=== PATIENT | female | born 1975 | race Caucasian/White ===

== ENCOUNTER → 2023-07-11 | Outpatient (CLI) | payer OTHER ==
[2023-07-13 15:12] LABS: HPV 16 Negative (Negative); HPV 18 Negative (Negative); HPV OTHER HR TYPES Negative (Negative)
== END ==
LOC: LAB SHORT 15:48 → LAB 15:48
PROVIDERS: Family Medicine
DX: Z01.419 Encounter for gynecological examination (general) (routine) without abnormal findings (principal)
CPT/HCPCS: 87624; G0145

== ENCOUNTER 2024-04-01 08:17 | Emergency (ER) | payer OTHER ==
[~2024-04-01] VITALS: Ht 160 cm; Wt 77.1 kg
[2024-04-01 08:20] VITALS: BP 120/88
[2024-04-01] MEDS ORDERED: Ketorolac Tromethamine 30mg Vial IV ONE (10:05)
== END 2024-04-01 10:55 | disposition home or self-care (01) ==
LOC: ER 08:17
DX: G56.21 Lesion of ulnar nerve, right upper limb (principal)
CPT/HCPCS: 73080; 73110; J1885

== ENCOUNTER 2024-10-10 12:03 | Emergency (ER) | payer OTHER, BC ==
[~2024-10-10] VITALS: Ht 160 cm; Wt 74.4 kg
[2024-10-10] MEDS ORDERED: HYDROmorphone HCl/Pf 1MG SYR IV ONE ×2 (12:20→13:25)
[2024-10-10 12:30] VITALS: BP 135/97
[2024-10-10] MEDS ORDERED: Ketorolac Tromethamine 15mg Vial IV ONE (13:40)
[2024-10-10] MEDS ORDERED: Methocarbamol 500 MG Tab PO ONE (13:40)
[2024-10-10] MEDS ORDERED: Acetaminophen 500 MG Tab PO ONE (13:40)
[2024-10-10] MEDS ORDERED: Ondansetron HCl 2 MG / ML 2ML Vial IV ONE (14:00)
[2024-10-10] MEDS ORDERED: Robaxin750 MG PO (14:17)
[2024-10-10] MEDS ORDERED: Roxicodone5 MG PO (14:17)
[2024-10-10] MEDS ORDERED: Naprosyn500 MG PO (14:17)
== END 2024-10-10 15:07 | disposition home or self-care (01) ==
LOC: ER 12:03
DX: S39.012A Strain of muscle, fascia and tendon of lower back, initial encounter (principal); S30.0XXA Contusion of lower back and pelvis, initial encounter; S70.01XA Contusion of right hip, initial encounter; W01.0XXA Fall on same level from slipping, tripping and stumbling without subsequent striking against object, initial encounter; Y93.K1 Activity, walking an animal
CPT/HCPCS: 72131; 72192; 96374; 96375; 96376; 99284-25; A9270; J1171; J1885; J2405

== ENCOUNTER 2025-04-17 18:50 | Emergency (ER) | payer OTHER ==
[~2025-04-17] VITALS: Ht 160 cm; Wt 72.6 kg
[~2025-04-17 18:50] MED LIST: Naprosyn500 MG PO; Robaxin750 MG PO; Roxicodone5 MG PO
[2025-04-17 19:23] VITALS: BP 118/79
== END 2025-04-17 20:48 | disposition home or self-care (01) ==
LOC: ER 18:50
DX: M25.531 Pain in right wrist (principal); Z88.1 Allergy status to other antibiotic agents; Z88.2 Allergy status to sulfonamides; Z91.048 Other nonmedicinal substance allergy status; Z79.899 Other long term (current) drug therapy
CPT/HCPCS: 73110; 73130; 99283-25

== ENCOUNTER 2025-07-16 12:55 | Emergency (ER) | payer BC ==
[~2025-07-16] VITALS: Ht 160 cm; Wt 74.4 kg
[2025-07-16 13:00] VITALS: BP 122/87
[2025-07-16] MEDS ORDERED: Ketorolac Tromethamine 15mg Vial IM ONE (14:15)
== END 2025-07-16 15:11 | disposition home or self-care (01) ==
LOC: ER 12:55
DX: M43.16 Spondylolisthesis, lumbar region (principal); M51.360 Other intervertebral disc degeneration, lumbar region with discogenic back pain only; Z88.2 Allergy status to sulfonamides; Z88.1 Allergy status to other antibiotic agents; Z91.048 Other nonmedicinal substance allergy status
CPT/HCPCS: 74176; 96372; 99283-25; A9270; J1885

== ENCOUNTER 2025-07-19 14:27 | Emergency (ER) | payer BC ==
[~2025-07-19] VITALS: Ht 160 cm; Wt 74.4 kg
[2025-07-19] MEDS ORDERED: Morphine Sulfate 4 MG/1 ML Injection IV ONE ×2 (15:05→16:10)
[2025-07-19] MEDS ORDERED: Ondansetron HCl 2 MG / ML 2ML Vial IV ONE (15:05)
[2025-07-19 15:21] LABS: BASOPHILS ABSOLUTE AUTO 0.03 K/mm3 (0.00-0.23); BASOPHILS PERCENT AUTO 1 % (0-2); EOSINOPHILS ABSOLUTE AUTO 0.07 K/mm3 (0.00-0.68); EOSINOPHILS PERCENT AUTO 1 % (0-6); Hematocrit 40.6 % (33.0-51.0); Hemoglobin 14.2 g/dL (11.5-16.0); IMMATURE GRAN ABSOLUTE AUTO 0.01 K/mm3 (0.00-0.10); IMMATURE GRAN PERCENT AUTO 0 % (0-1); LYMPHOCYTES ABSOLUTE AUTO 2.53 K/mm3 (0.84-5.20); LYMPHOCYTES PERCENT AUTO 43 % (21-46); MONOCYTES ABSOLUTE AUTO 0.65 K/mm3 (0.16-1.47); MONOCYTES PERCENT AUTO 11 % (4-13); Mean Corpuscular HGB Conc 35.0 g/dL (31.5-36.5); Mean Corpuscular Volume 91 fL (80-100); NEUTROPHILS ABSOLUTE AUTO 2.58 K/mm3 (1.96-9.15); NEUTROPHILS PERCENT AUTO 44 % (41-73); NRBC ABSOLUTE 0.00 K/mm3 (0.00-0.02); NRBC Auto 0.0 /100 WBC (0.0-0.2); Platelet Count 258 K/mm3 (150-400); RDW Coefficient Variation 11.2 % (11.7-14.2); RDW Standard Deviation 38.1 fL (35.1-46.3)
[2025-07-19 15:39] LABS: Alanine Aminotransfer (ALT/SGP 42.0 U/L (12-78); Albumin, Blood 3.9 g/dL (3.4-5.0); Albumin/Globulin Ratio 1.1 (0.8-1.8); Anion Gap 11.0 mmol/L (3-11); Aspartate Aminotrans (AST/SGOT 18.0 U/L (12-37); Bilirubin, Total 0.3 mg/dL (0.1-1.0); Blood Urea Nitrogen 11.0 mg/dL (8-24); CO2, Blood 24.0 mmol/L (21-32); Calcium, Blood 9.3 mg/dL (8.5-10.1); Chloride, Blood 106.0 mmol/L (98-108); Creatinine, Blood 0.69 mg/dL (0.40-1.00); Globulin, Blood 3.6 g/dL (2.2-4.0); Glucose, Blood 115.0 mg/dL (70-99); Potassium, Blood 3.8 mmol/L (3.5-5.5); Sodium, Blood 137.0 mmol/L (136-145); Total Protein, Blood 7.5 g/dL (6.4-8.2)
[2025-07-19] MEDS ORDERED: OXYC5 PO (17:51)
[2025-07-19 18:00] VITALS: BP 127/80
== END 2025-07-19 18:21 | disposition home or self-care (01) ==
LOC: ER 14:27
PROVIDERS: Student in an Organized Health Care Education/Training Program
DX: M51.369 Other intervertebral disc degeneration, lumbar region without mention of lumbar back pain or lower extremity pain (principal); G43.909 Migraine, unspecified, not intractable, without status migrainosus; Z79.899 Other long term (current) drug therapy; Z91.048 Other nonmedicinal substance allergy status; Z88.1 Allergy status to other antibiotic agents; Z88.8 Allergy status to other drugs, medicaments and biological substances
CPT/HCPCS: 72148; 80053; 85025; 85651; 96374; 96375; 96376; 99284-25; J2270; J2405